=== PATIENT | female | born 1965 | race Caucasian/White ===

== ENCOUNTER → 2016-11-25 | Outpatient (CLI) | payer OTHER ==
[~2016-11-25] MED LIST: ALBUTEROL17 GM INH; AMOXICILLIN500 M1 PO; BEE POLLEN580 MG PO; CYMBALTA PO; HYDROCHLOROTHIA25 MG PO; LODINE PO; MOTRIN600 MG PO; PAROXETINE HCL20 MG PO; POTASSIUM99 M1 PO; PRAVASTATIN SOD20 MG PO; PREDNISONE PO; PROBIOTIC1 EAC1 PO; PROTONIX PO; ROBITUSSIN A-C S5 ML PO; ZYRTEC10 M2 PO
--- NOTE | ~2016-11-25 | CR170 ---
[facility]. [facility] A Service of [facility] & [facility] RADIOLOGY TEXT RESULTS PATIENT: SUGEY WALKER LOCATION: [facility] : 65 UNIT #: [id number] AGE: [address]: Morales Avina MD SEX: F ORDER DR: [id number] [place] [id number] O MR#: [id number] Acc #: [id number] NAME: SUGEY WALKER : 1965 SEX: F STUDY DATE/TIME: 11/25/2016 15:48 UNIT: [facility] ROOM: STUDY DESCRIPTION: CR Knee 2 Views Rt Attending Physician: Morales Avina M.D. Referring Physician: Morales Avina M.D. Ordering Physician: Morales Avina M.D. Primary Care Physician: Morales Avina M.D. MEDICAL IMAGING REPORT This report is preliminary unless electronic signature is present. EXAM Right knee 2 views 11/25/2016 HISTORY Right knee pain for 2 months. Right knee locking up no known injury. FINDINGS 2 views of the right knee demonstrate no fracture. The bones are normally mineralized. The joint space is normally maintained. There is no joint effusion. IMPRESSION Negative right knee. Dictated by... Jarek Armendariz M.D. THIS IS AN ELECTRONICALLY VERIFIED REPORT Jarek Armendariz M.D. at 11/26/2016 2:06 PM LISA/kenney TD: 11/25/2016 19:30 JOB #: [id number] MEDICAL IMAGING REPORT Page 1 of 1
--- NOTE | ~2016-11-25 | CR169 ---
[facility]. [facility] A Service of [facility] & [facility] RADIOLOGY TEXT RESULTS PATIENT: SUGEY WALKER LOCATION: [facility] : 65 UNIT #: [id number] AGE: [address]: Morales Avina MD SEX: F ORDER DR: [id number] [place] [id number] O MR#: [id number] Acc #: [id number] NAME: SUGEY WALKER : 1965 SEX: F STUDY DATE/TIME: 11/25/2016 15:48 UNIT: [facility] ROOM: STUDY DESCRIPTION: CR Knee 2 Views Lt Attending Physician: Morales Avina M.D. Referring Physician: Morales Avina M.D. Ordering Physician: Morales Avina M.D. Primary Care Physician: Morales Avina M.D. MEDICAL IMAGING REPORT This report is preliminary unless electronic signature is present. EXAM Left knee 2 views 11/25/2016. HISTORY Left knee pain, left knee locking up for 2 months. Left knee swelling. FINDINGS 2 views of the left knee demonstrate no fracture. The joint space is normally maintained. Small osteophytes extended along the medial compartment of the knee and along the posterior aspect of the patella. There is a small knee joint effusion. IMPRESSION Mild degenerative change about the left knee. No acute abnormality. Dictated by... Jarek Armendariz M.D. THIS IS AN ELECTRONICALLY VERIFIED REPORT Jarek Armendariz M.D. at 11/26/2016 2:06 PM Kendra TD: 11/25/2016 19:29 JOB #: [id number] MEDICAL IMAGING REPORT Page 1 of 1
== END | disposition home or self-care (01) ==
LOC: SRAD 15:44
DX: M25.561 Pain in right knee (principal); M25.562 Pain in left knee; M17.12 Unilateral primary osteoarthritis, left knee
CPT/HCPCS: 73560